=== PATIENT | female | born 1970 | race Caucasian/White ===

== ENCOUNTER 2017-10-13 02:32 | Emergency (ER) | payer SELFPAY ==
--- NOTE | 2017-10-13 02:37 | ED Physician Documentation ---
Chest Pain - HISTORIAN Historian: patient - PAST HX Home Medications: Ambulatory Orders Medication Instructions Recorded Lisinopril 5 mg PO DAILY u2 06/18/13 Solifenacin Succinate [Vesicare] 5 mg PO u2 12/14/13 Discharge Referrals: Coleen Alvarenga MD [Primary Care Provider] - 2 Days
[2017-10-13 02:55] LABS: BASOPHILS % 0.5 (0.0-1.5); EOSINOPHILS % 1.3 % (0.0-6.8); MEAN CORPUSCULAR HEMOGLOBIN 28.6 pg (28.0-34.0); MEAN CORPUSCULAR VOLUME 84.1 fl (80.0-100.0); MONOCYTES % 3.2 % (0.0-11.0); NEUTROPHILS # 6.2 # k/uL (1.4-7.7)
[2017-10-13] MEDS: ASPIRIN 81 MG CHEW TAB PO ONE (02:55)
[2017-10-13] MEDS: 0.9 % SODIUM CHLORIDE 1,000 ML IV ONE (02:55)
[2017-10-13] MEDS: ONDANSETRON HCL/PF 4 MG/ 2ML VIAL IVP ONE (02:56)
[2017-10-13 03:21] LABS: eGFR (Non-African) > 60
--- NOTE | 2017-10-13 03:52 | ED Physician Documentation ---
Chest Pain - HISTORIAN Historian: patient - HPI Stated Complaint: Chest pain with shortness of breath Chief Complaint: Chest Pain Onset: hours (4) Timing: sudden onset Duration: none Last known Well Date: 10/13/17 Last Known Well Time: 01:00 Context: activity Severity: mild Quality: pressure. denies: like prior RI Chest Pain Radiation: other (she has neck and headache as well ) Chest Pain Signs/Symptoms: nausea, vomiting (she was drinking ), dizziness. denies: diaphoresis, palpitations Worsened By: nothing Relieved By: nothing Further Comments: yes (she reports to the nurse she had been drinking several "fior and coke" on intake. she states she started to have mid epigastric/chest pain. she tried TUMS with no relief. She did have an episode of vomiting after drinking the fior and coke. she has had an RI in the past. She has no meds currently due to her loss of insurance. She is not sure how long she has been without the medications. She is a smoker) - ROS CONST: none GI/: abdominal pain, vomiting, nausea - PAST HX RI risk factors: cardiac disease DVT/PE Risk Factors: none TAD/AAA risk factors: none Neuro deficit: none GI disease: none Lung disease: none Surgeries/Procedures: cardiac stent Immunizations: UTD Allergies/Adverse Reactions: Allergies Allergy/AdvReac Type Severity Reaction Status Date / Time No Known Allergies Allergy Unverified 10/13/17 03:09 Home Medications: Ambulatory Orders Medication Instructions Recorded Lisinopril 5 mg PO DAILY u2 06/18/13 Solifenacin Succinate [Vesicare] 5 mg PO u2 12/14/13 - SOCIAL HX Smoking History: cigarettes Alcohol Use: occasionally Drug Use: none - FAMILY HX Family HX: none - VITAL SIGNS Vital Signs: Vital Signs Temp Pulse Resp BP Pulse Ox 97.0 F L 72 20 135/65 100 10/13/17 02:35 10/13/17 03:30 10/13/17 02:35 10/13/17 02:35 10/13/17 03:30 - REVIEWED ASSESSMENTS Nursing Assessment Reviewed: Yes Vitals Reviewed: Yes Progress - Progress Progress: 0400: reports she feels "much better" - results and plan discussed. She is agreeable DG ED Results Lab/Radiology - Lab Results Lab Results: Lab Results 10/13/17 10/13/1718 02:44 02:44 02:44 WBC RBC Hgb Hct MCV MCH MCHC RDW Plt Count Neut % (Auto) Lymph % (Auto) [place] % (Auto) Eos % (Auto) Baso % (Auto) Neut # (Auto) Lymph # (Auto) [place] # (Auto) Eos # (Auto) Baso # (Auto) Reactive Lymphs % Reactive Lymphs # D-Dimer 582 ng/mL ng/mL (6.0-682) Sodium 133 mmol/L L mmol/L (136-145) Potassium 3.7 mmol/L mmol/L (3.5-5.1) Chloride 100 mmol/L mmol/L (98-107) Carbon Dioxide 25 mmol/L mmol/L (22-30) BUN 13 mg/dL mg/dL (7-17) Creatinine 0.50 mg/dL L mg/dL (0.52-1.04) Estimated Creat Clear 299 Est GFR ( Amer) > 60 (60 - ) Est GFR (Non-Af Amer) > 60 (60 - ) Glucose 119 mg/dL H mg/dL (74-106) Calcium 8.9 mg/dL mg/dL (8.4-10.2) Total Bilirubin 0.2 mg/dL mg/dL (0.2-1.3) AST 18 U/L U/L (15-46) ALT 28 U/L U/L (13-69) Alkaline Phosphatase 79 U/L U/L (38-126) Creatine Kinase 56 U/L U/L (30-135) Troponin I < 0.03 ng/mL L ng/mL (0.03-0.06) Total Protein 8.2 g/dL g/dL (6.3-8.2) Albumin 4.7 g/dL g/dL (3.5-5.0) Ethyl Alcohol 4.4 mg/dL mg/dL (0.0-10.0) 10/13/17 02:44 WBC 9.10 K/ul K/ul (4.00-12.00) RBC 5.52 M/ul H M/ul (3.90-5.20) Hgb 15.8 g/dL g/dL (12.0-16.0) Hct 46.5 % % (34.5-46.5) MCV 84.1 fl fl (80.0-100.0) MCH 28.6 pg pg (28.0-34.0) MCHC 34.0 g/dL g/dL (30.0-36.0) RDW 14.4 % H % (11.3-14.3) Plt Count 329 K/mm3 K/mm3 (130-400) Neut % (Auto) 68.7 % % (39.0-79.0) Lymph % (Auto) 25.0 % % (16.0-50.0) [place] % (Auto) 3.2 % % (0.0-11.0) Eos % (Auto) 1.3 % % (0.0-6.8) Baso % (Auto) 0.5 (0.0-1.5) Neut # (Auto) 6.2 # k/uL # k/uL (1.4-7.7) Lymph # (Auto) 2.3 # k/uL # k/uL (0.6-4.0) [place] # (Auto) 0.3 # k/uL # k/uL (0.0-0.9) Eos # (Auto) 0.1 # k/uL # k/uL (0.0-0.6) Baso # (Auto) 0.0 # k/uL # k/uL (0.0-0.5) Reactive Lymphs % 1.3 % % (0.0-5.0) Reactive Lymphs # 0.1 # k/uL # k/uL (0.0-0.8) D-Dimer Sodium Potassium Chloride Carbon Dioxide BUN Creatinine Estimated Creat Clear Est GFR ( Amer) Est GFR (Non-Af Amer) Glucose Calcium Total Bilirubin AST ALT Alkaline Phosphatase Creatine Kinase Troponin I Total Protein Albumin Ethyl Alcohol - Radiology Radiology Impressions: AP chest Clinical history: Sudden onset of chest pain tonight. Findings: Examination of the chest single AP view demonstrates lungs to be hypoventilated but clear. The cardiovascular and mediastinal silhouettes are within normal limits for the technique and the patient's size. Bony thorax is intact. Impression: 1. No active disease. Electronically signed on Oct 13, 2017 3:46:20 AM CDT by: Klaus Hernandez - [place] Orders: ED Orders Category Date Time Status Continuous EKG monitoring Q30M Care 10/13/17 02:38 Active Continuous Pulse Oximetry Q30M Care 10/13/17 02:[address] IV Lock 1T Care 10/13/17 02:38 Active CHEST 1VIEW [RAD] Stat Exams 10/13/17 Ordered ALCOHOL MEDICAL USE ONLY Stat Lab 10/13/17 02:44 Completed CBC/PLATELET/DIFF Routine Lab 10/13/17 02:44 Completed CMP Routine Lab 10/13/17 02:44 Completed CREATINE KINASE Routine Lab 10/13/17 02:44 Completed D DIMER Stat Lab 10/13/17 02:44 Completed TROPONIN I (cTnI) Stat Lab 10/13/17 02:44 Completed UA W/MICRO IF INDICATED Routine Lab 10/13/17 02:46 Ordered UDS [DRUG SCREEN URINE MEDICAL ONLY] Routine Lab 10/13/17 Ordered 0.9 % Sodium Chloride [Normal Saline] 1,000 ml Med 10/13/17 02:40 Discontinued IV Q1H Aspirin Med 10/13/17 02:37 Discontinued 324 mg PO NOW ONE Ondansetron HCl/Pf [Zofran 4 mg/2 ml] Med 10/13/17 02:46 Discontinued 4 mg IVP NOW ONE Oxygen Daily Oxygen 10/13/17 02:45 Ordered EKG WITH COMPARISON Stat Ther 10/13/17 02:38 Ordered Chest Pain Physical Exam - EXAM General Appearance: alert, mild distress EENT: eye inspection normal Neck: nml inspection Respiratory: no resp. distress, chest non-tender, nml breath sounds CVS: reg. rate & rhythm, no murmur Abdomen: soft, normal bowel sounds, no distension, non-tender Skin: warm/dry, normal color Extremities: non-tender, normal range of motion, no evidence of injury, no edema Neuro: oriented X3 Discharge Clincal Impression: Chest pain Qualifiers: Chest pain type: other chest pain Qualified Code(s): R07.89 - Other chest pain; R07.8 - Other chest pain Referrals: Coleen Alvarenga MD [Primary Care Provider] - 2 Days Additional Instructions: 1. Follow up with PCP in 2-4 days 2. Return to ER for any concerns Condition: Good Disposition: 01 HOME, SELF-CARE Decision to Admit: NO Date of Decison to Admit: 10/20/17 Decision Time: 04:00
--- NOTE | 2017-10-13 04:07 | Diagnostic Imaging Report ---
CLAUDINE CHACKO [facility] [address] [facility] [address], [place]. [address] Report Submission Date: Oct 13, 2017 3:46:20 AM CDT Patient Study Name: LILIAN ELLISON Date: Oct 13, 2017 3:27:14 AM CDT Modality Type: DX Gender: F Description: CHEST : 74 Institution: [facility] Physician: CLAUDINE CHACKO AP chest Clinical history: Sudden onset of chest pain tonight. Findings: Examination of the chest single AP view demonstrates lungs to be hypoventilated but clear. The cardiovascular and mediastinal silhouettes are within normal limits for the technique and the patient's size. Bony thorax is intact. Impression: 1. No active disease. Electronically signed on Oct 13, 2017 3:46:20 AM CDT by: Klaus GURROLA
[2017-10-13 04:18] VITALS: BP 112/51
[2017-10-13 06:33] LABS: APPEARANCE,URINE CLEAR (CLEAR); COLOR,URINE YELLOW (YELLOW); OCCULT BLOOD,URINE TRACE-LYSED (NEGATIVE); UROBILINOGEN URINE 0.2 Eu (0.2-1.0)
[2017-10-13 06:34] LABS: CANNABINOIDS NEGATIVE ng/mL (< 50); METHYLENEDIOXYMETHAMPHETAMINE NEGATIVE ng/mL (<500)
== END 2017-10-13 04:10 | disposition home or self-care (01) ==
LOC: ED 02:32
DX: R07.89 Other chest pain (principal)
CPT/HCPCS: 71045; 80053; 80320; 80377; 81002; 82550; 84484; 85025; 85379; 93005; J2405; J7030; 96365; 96375; 99284; G0480; G0481; S1016